=== PATIENT | female | born 1965 ===

== ENCOUNTER 2018-09-10 14:51 | Emergency (ER) | payer OTHER ==
[2018-09-10] MEDS ORDERED: Albuterol-Ipratrop 3 mg / 0.5 (3 ml) UD INH STA (15:39)
--- NOTE | 2018-09-10 16:21 | RAD ---
Date of service: 09/10/2018 HISTORY: Cough COMPARISON: No prior. TECHNIQUE: Chest PA and lateral FINDINGS: LINES AND TUBES: None. LUNG AND PLEURA: There is mild pulmonary hyperinflation and peribronchial thickening with increased streaky opacities in the lungs. There is linear atelectasis/scarring in the lower lobes. No focal consolidation. No pleural effusion or pneumothorax. HEART AND MEDIASTINUM: The heart is not enlarged. No aortic atherosclerotic calcifications present. The hilar and mediastinal contours are within normal limits. SKELETAL STRUCTURES: The bony structures are within normal limits for the patient's age. VISUALIZED UPPER ABDOMEN: Normal. OTHER FINDINGS: None. IMPRESSION: Findings may represent reactive small airway disease versus atypical/viral pneumonitis. No lobar pneumonia.
[2018-09-10] MEDS ORDERED: Albuterol-Ipratrop 3 mg / 0.5 (3 ml) UD ONE (16:24)
[2018-09-10 16:51] VITALS: BP 133/86; PULSE 70; RESP 16; TEMP 98.5; O2SAT 99
--- NOTE | 2018-09-10 17:17 | C.PDOC ---
History Of Present Illness 53 y/o female with a PMHx of asthma presents to the ED for complaint of cough for 2 weeks. Cough is productive of white sputum and worsen at night. Associated with sinus congestion for the last few days. Otherwise she denies any fever, chest pain, SOB, nausea, vomiting, abdominal pain, headache, dizziness, lightheadedness, or leg pain/swelling. Time Seen by Provider: 09/10/18 15:24 Chief Complaint (Nursing): Cough, Cold, Congestion History Per: Patient History/Exam Limitations: no limitations Onset/Duration Of Symptoms: Days Current Symptoms Are (Timing): Still Present Past Medical History Reviewed: Historical Data, Nursing Documentation, Vital Signs Vital Signs: Last Vital Signs Temp 98.5 F 09/10/18 16:50 Pulse 70 09/10/18 16:50 Resp 16 09/10/18 16:50 BP 133/86 09/10/18 16:50 Pulse Ox 99 09/10/18 16:50 - Medical History PMH: Asthma, Depression, HTN Family History: States: Unknown Family Hx - Social History Hx Alcohol Use: No Hx Substance Use: No - Immunization History Hx Tetanus Toxoid Vaccination: No Hx Influenza Vaccination: No Hx Pneumococcal Vaccination: No Review Of Systems Except As Marked, All Systems Reviewed And Found Negative. Constitutional: Negative for: Fever, Chills ENT: Positive for: Nose Congestion Cardiovascular: Negative for: Chest Pain, Palpitations Respiratory: Positive for: Cough. Negative for: Shortness of Breath Gastrointestinal: Negative for: Nausea, Vomiting, Abdominal Pain, Diarrhea Musculoskeletal: Negative for: Leg Pain Neurological: Negative for: Weakness, Headache Physical Exam - Physical Exam Appears: Non-toxic, No Acute Distress Skin: Warm, Dry Head: Atraumatic, Normacephalic Eye(s): bilateral: Normal Inspection, PERRL, EOMI Oral Mucosa: Moist Neck: Normal ROM Chest: Symmetrical Cardiovascular: Rhythm Regular, No Murmur Respiratory: No Accessory Muscle Use, No Rales, No Rhonchi, Wheezing (Mild expiratory wheezing bilaterally) Gastrointestinal/Abdominal: Soft, No Tenderness, No Distention Extremity: Bilateral: Normal Color And Temperature, Normal ROM Pulses: Left Dorsalis Pedis: Normal, Right Dorsalis Pedis: Normal Neurological/Psych: Oriented x3 ED Course And Treatment O2 Sat by Pulse Oximetry: 99 (RA) Pulse Ox Interpretation: Normal - Other Rad CXR X-Ray: Read By Radiologist Interpretation: Accession No. : [id number]. Patient Name / ID : VALENTINA NYE / [id number]. Exam Date : 09/10/2018 16:10:04 ( Approved ). Study Comment : Sex / Age : F / 53Y. Creator : Radha Campbell MD. Dictator : Radha Campbell MD. Contractor General Building : High School Professional : Radha Campbell MD. Approver2 : Report Date : 09/10/2018 16:17:25. My Comment : . Date of service: 09/10/2018. HISTORY: Cough. COMPARISON: No prior. TECHNIQUE: Chest PA and lateral. FINDINGS: LINES AND TUBES: None. LUNG AND PLEURA: There is mild pulmonary hyperinflation and peribronchial thickening with increased streaky opacities in the lungs. There is linear atelectasis/scarring in the lower lobes. No focal consolidation. No pleural effusion or pneumothorax. HEART AND MEDIASTINUM: The heart is not enlarged. No aortic atherosclerotic calcifications present. The hilar and mediastinal contours are within normal limits. SKELETAL STRUCTURES: The bony structures are within normal limits for the patient's age. VISUALIZED UPPER ABDOMEN: Normal. OTHER FINDINGS: None. IMPRESSION: Findings may represent reactive small airway disease versus atypical/viral pneumonitis. No lobar pneumonia. Medical Decision Making Medical Decision Making: Plan: - Chest x-ray - Duoneb - 60 mg PO prednisone On reevaluation patient reports improvement in symptoms. Lung sounds improved on exam, decreased wheezing. Patient remains afebrile and in no acute distress. VSS. Plan is to discharge patient home with Z-pack based on CXR findings. Diagnostic testing results and plan of care discussed with patient. Strict instructions given regarding prescription use, importance of followup, and signs/symptoms to return to ER including SOB, chest pain, palpitations, or any other new/worsening symptoms. Pt verbalized understanding of discussion. Patient is A&Ox3, ambulating with steady gait, with vital signs stable for discharge. Disposition - Disposition Referrals: [facility] at [facility] [Outside] Disposition: HOME/ ROUTINE Disposition Time: 16:45 Condition: IMPROVED Additional Instructions: Z-ace as directed Prednisone 2 tabs daily for 4 days Ventolin inhaler every 6 hours as needed Followup with PMD within 2 days Return to ER with any new/worsening symptoms Prescriptions: Azithromycin [Z-Ace] 250 mg PO DAILY #6 tab predniSONE [predniSONE Tab] 40 mg PO DAILY #8 tab Instructions: Asthma, Adult (DC) Forms: General Discharge Instructions, [facility] (Sudanese), Work Excuse - Clinical Impression Clinical Impression: Asthma exacerbation, Lower respiratory tract infection - PA / PRECISION MACHINE OPERATOR / Resident Statement MD/DO has reviewed & agrees with the documentation as recorded. - Scribe Statement The provider has reviewed the documentation as recorded by the Scribmaynor Maradiaga All medical record entries made by the Scribe were at my direction and personally dictated by me. I have reviewed the chart and agree that the record accurately reflects my personal performance of the history, physical exam, medical decision making, and the department course for this patient. I have also personally directed, reviewed, and agree with the discharge instructions and disposition.
== END 2018-09-10 17:00 | disposition home or self-care (01) ==
LOC: C.ER 14:51
DX: J45.901 Unspecified asthma with (acute) exacerbation (principal); J22 Unspecified acute lower respiratory infection; I10 Essential (primary) hypertension